=== PATIENT | male | born 1950 | race Caucasian/White ===

== ENCOUNTER 2017-05-06 20:25 | Emergency (ER) | payer MEDICARE ==
[~2017-05-06] VITALS: Ht 170.2 cm; Wt 63.0 kg
[~2017-05-06 20:25] MED LIST: ALBUTEROL S2.5 MG/.5 IN; AMOXICILLIN500 MG PO; ASPIRIN EC81 MG PO; ASPIRIN325 MG OR; AUGMENTIN875 MG OR; AVELOX IV; BABY ASPIRIN81 MG PO; BACTROBAN21 EX; CELEXA10 MG OR; CEPHALEXIN500 MG OR; CEPHALEXIN500 MG PO; CHERATUSSIN PO; CIPROFLOXACN500 MG PO; COMBIVENT IN; EQ NICOTIN21 MG/24 H TD; FIORICET PO; FLEXERIL PO; LISINOPRIL10 MG OR; LISINOPRIL10 MG PO; LISINOPRIL5 MG OR; MEDDOSEPAK OR; MEDDOSEPAK PO; NAPROSYN500 MG PO; OMEPRAZOLE20 MG OR; PLAVIX75 MG OR; PLAVIX75 MG PO; PRILOSEC20 MG OR; SERTRALINE100 MG OR; SERTRALINE50 MG OR; SIMVASTATIN40 MG OR; SIMVASTATIN40 MG PO; TYLENOL # 31 TA1 PO; TYLENOL650 MG RE; ULTRAM50 M1 PO; ULTRAM50 MG OR; ZANTAC150 M1 PO; ZITHROMAX250 MG PO; ZOFRAN ODT8 MG PO; [UNRECOGNIZED DRUG - OTHER] OR
[2017-05-07 00:30] VITALS: BP 145/91
== END 2017-05-07 00:30 | disposition home or self-care (01) ==
LOC: ED 20:25
DX: S51.811A Laceration without foreign body of right forearm, initial encounter (principal); S51.011A Laceration without foreign body of right elbow, initial encounter; S09.90XA Unspecified injury of head, initial encounter; W01.198A Fall on same level from slipping, tripping and stumbling with subsequent striking against other object, initial encounter; Y93.H2 Activity, gardening and landscaping; Y92.007 Garden or yard of unspecified non-institutional (private) residence as the place of occurrence of the external cause

== ENCOUNTER 2017-10-19 04:28 | Emergency (ER) | payer MEDICARE ==
[~2017-10-19] VITALS: Ht 170.2 cm; Wt 64.6 kg
[2017-10-19 05:38] LABS: HEMATOCRIT 45.3 % (39.0-50.0); HEMOGLOBIN 15.1 g/dl (14.0-18.0); IMMATURE GRANULOCYTES 0.3 % (0.0-1.0); MEAN CELL VOLUME 100.9 fL CALC (80.0-100.0); MEAN CORPUSCULAR HGB 33.6 pG CALC (26.0-32.0); MEAN CORPUSCULAR HGB CONC 33.3 g/L CALC (32.0-36.0); NEUT# 5.29 thou/uL (1.82-7.42); RED BLOOD COUNT 4.49 mill/uL (4.70-6.10); RED CELL DISTRI WIDTH 13.3 % (11.5-15.5)
[2017-10-19 05:54] LABS: ALBUMIN 4.6 g/dL (3.2-5.0); ALKALINE PHOSPHATASE 83 u/l (38-126); AMYLASE 68 u/l (30-110); ANION GAP 17 (6-22 (CALC)); BILIRUBIN, TOTAL 0.5 mg/dL (0.0-1.4); BUN 16 mg/dL (8-23); BUN/CREATININE RATIO 12 (12-20 (CALC)); CARBON DIOXIDE 27 mmol/l (22-30); CHLORIDE 104 mmol/l (95-108); CREATININE 1.3 mg/dL (0.7-1.3); GFR 55 ML/MIN (>=60 (CALC)); GFR FOR AFR.AMER. > 60 ML/MIN (>=60 (CALC)); LIPASE 94 u/l (23-300); SGOT/AST 24 u/l (19-48); SGPT/ALT 18 u/l (11-66); SODIUM 144 mmol/l (137-146); TOTAL PROTEIN 7.4 g/dL (6.3-8.2)
[2017-10-19 06:05] LABS: MYOGLOBIN 32 ng/mL (0 - 121)
[2017-10-19 07:49] LABS: URINE BILIRUBIN - DIPSTICK NEGATIVE (NEGATIVE); URINE BLOOD DIPSTICK NEGATIVE (NEGATIVE); URINE CLARITY CLEAR; URINE COLOR YELLOW; URINE GLUCOSE - DIPSTICK NEGATIVE (NEGATIVE); URINE KETONE NEGATIVE (NEGATIVE); URINE LEUK ESTERASE NEGATIVE (NEGATIVE); URINE NITRITE - DIPSTICK NEGATIVE (Negative); URINE PH 7.5 (4.5-8.0); URINE PROTEIN - DIPSTICK NEGATIVE (NEG-TRACE); URINE UROBILINOGEN - DIPSTICK 0.2 E.U./dL (0.2)
[2017-10-19] MEDS ORDERED: HYOSCYAMINE0.125 M1 SL (08:02)
[2017-10-19 08:27] VITALS: BP 153/91
== END 2017-10-19 08:27 | disposition home or self-care (01) ==
LOC: ED 04:28
PROVIDERS: Emergency Medicine
DX: R10.84 Generalized abdominal pain (principal); I10 Essential (primary) hypertension; K21.9 Gastro-esophageal reflux disease without esophagitis; F17.210 Nicotine dependence, cigarettes, uncomplicated; Z86.73 Personal history of transient ischemic attack (TIA), and cerebral infarction without residual deficits

== ENCOUNTER 2019-10-23 | Emergency (ER) | payer MEDICARE ==
[~2019-10-23] MED LIST changes: +HYOSCYAMINE0.125 M1 SL
[2019-10-23] MEDS ORDERED: NORVASC5 M1 PO (00:25)
[2019-10-23 01:05] LABS: HEMATOCRIT 44.4 % (39.0-50.0); HEMOGLOBIN 14.9 g/dl (14.0-18.0); IMMATURE GRANULOCYTES 0.3 % (0.0-5.0); MEAN CELL VOLUME 101.6 fL CALC (80.0-100.0); MEAN CORPUSCULAR HGB 34.1 pG CALC (26.0-32.0); MEAN CORPUSCULAR HGB CONC 33.6 g/L CALC (32.0-36.0); NEUT# 3.71 thou/uL (1.82-7.42); RED BLOOD COUNT 4.37 mill/uL (4.70-6.10); RED CELL DISTRI WIDTH 14.1 % (11.5-15.5)
[2019-10-23] MEDS ORDERED: DOXYCYCL HYC100 MG PO (01:21)
[2019-10-23] MEDS ORDERED: ROBITUSSIN AC10 ML PO (01:21)
== END 2019-10-23 01:36 | disposition home or self-care (01) ==
PROVIDERS: Family Medicine
DX: S39.012A Strain of muscle, fascia and tendon of lower back, initial encounter (principal); S29.012A Strain of muscle and tendon of back wall of thorax, initial encounter; J40 Bronchitis, not specified as acute or chronic; I10 Essential (primary) hypertension; F17.210 Nicotine dependence, cigarettes, uncomplicated; X58.XXXA Exposure to other specified factors, initial encounter; Z86.73 Personal history of transient ischemic attack (TIA), and cerebral infarction without residual deficits

== ENCOUNTER 2024-08-21 00:17 | Emergency (ER) | payer MEDICARE ==
[2024-08-21] VITALS (7 sets, daily range): BP systolic 87–158; BP diastolic 60–101
[~2024-08-21] VITALS: Ht 170.2 cm; Wt 59.0 kg
[~2024-08-21 00:17] MED LIST changes: +DOXYCYCL HYC100 MG PO; +NORVASC5 M1 PO; +ROBITUSSIN AC10 ML PO
[2024-08-21] MEDS ORDERED: DEXAMETHASONE 2 MG/TAB TAB PO ONE (00:40)
[2024-08-21] MEDS ORDERED: BENZONATATE 200 MG/CAP PO ONE ×2 (00:40→03:00)
[2024-08-21] MEDS ORDERED: BENZONATATE200 MG PO (02:57)
[2024-08-21] MEDS ORDERED: DECADRON4 MG PO (02:57)
[2024-08-21] MEDS ORDERED: AZITHROMYCIN500 MG PO (02:57)
[2024-08-21] MEDS ORDERED: FLONASE AL50 MCG/ACT (03:01)
== END 2024-08-21 03:08 | disposition home or self-care (01) ==
LOC: ED 00:17
DX: J40 Bronchitis, not specified as acute or chronic (principal); I10 Essential (primary) hypertension; E78.00 Pure hypercholesterolemia, unspecified; K21.9 Gastro-esophageal reflux disease without esophagitis; Z86.73 Personal history of transient ischemic attack (TIA), and cerebral infarction without residual deficits; F17.210 Nicotine dependence, cigarettes, uncomplicated; Z20.822 Contact with and (suspected) exposure to COVID-19